=== PATIENT | female | born 1985 | race Caucasian/White ===

== ENCOUNTER 2018-02-24 15:04 | Emergency (ER) | payer MEDICARE, MEDICAID ==
[2018-02-24 17:07] LABS: HEMATOCRIT 38.1 % (36.0-47.0); HEMOGLOBIN 13.5 g/dl (12.0-15.5); MEAN CORPUSCULAR HGB CONC 35.4 g/dl (32.0-36.5); MEAN CORPUSCULAR VOLUME 90.3 fl (80.0-96.0); PLATELET COUNT, AUTOMATED 230 10^3/uL (150-450); RED BLOOD COUNT 4.22 10^6/uL (4.00-5.40); RED CELL DISTRIBUTION WIDTH 12.8 % (11.5-14.5); WHITE BLOOD COUNT 5.4 10^3/uL (4.0-10.0)
[2018-02-24 17:16] LABS: CONTROL LINE HCG INT CTR LINE PRESENT; HCG, SERUM QUALITATIVE NEGATIVE (NEGATIVE)
[2018-02-24 17:26] LABS: AMPHETAMINES LEVEL URINE POSITIVE (NEGATIVE); BARBITURATES URINE NEGATIVE (NEGATIVE); BENZODIAZEPINES URINE POSITIVE (NEGATIVE); CANNABINOIDS URINE NEGATIVE (NEGATIVE); COCAINE METABOLITE URINE NEGATIVE (NEGATIVE); METHADONE URINE NEGATIVE (NEGATIVE); OPIATES URINE NEGATIVE (NEGATIVE); PHENCYCLIDINE URINE NEGATIVE (NEGATIVE)
[2018-02-24 17:40] LABS: ACETAMINOPHEN LEVEL < 2.0 UG/ML (10.0-30.0); ALBUMIN 4.6 GM/DL (3.2-5.2); ALBUMIN/GLOBULIN RATIO 1.39 (1.00-1.93); ALKALINE PHOSPHATASE 69 U/L (45-117); ALT/SGPT 25 U/L (12-78); ANION GAP 7 MEQ/L (8-16); AST/SGOT 16 U/L (7-37); BILIRUBIN,DIRECT 0.2 MG/DL (0.0-0.2); BILIRUBIN,TOTAL 0.7 MG/DL (0.2-1.0); BLOOD UREA NITROGEN 18 MG/DL (7-18); CALCIUM LEVEL 9.2 MG/DL (8.5-10.1); CARBON DIOXIDE LEVEL 30 MEQ/L (21-32); CHLORIDE LEVEL 103 MEQ/L (98-107); CREATININE FOR GFR 0.71 MG/DL (0.55-1.30); ETHYL ALCOHOL (ETHANOL) 0.003 % (0.000-0.010); GLOMERULAR FILTRATION RATE > 60.0 (>60); GLUCOSE, FASTING 89 MG/DL (70-100); POTASSIUM SERUM 4.6 MEQ/L (3.5-5.1); SALICYLATE LEVEL 1.8 MG/DL (5.0-30.0); SODIUM LEVEL 140 MEQ/L (136-145); THYROID STIMULATING HORMONE 0.828 uIU/ML (0.358-3.740); TOTAL PROTEIN 7.9 GM/DL (6.4-8.2)
== END 2018-02-24 18:21 | disposition home or self-care (01) ==
LOC: M ED 15:04
DX: F41.9 Anxiety disorder, unspecified (principal); Z79.899 Other long term (current) drug therapy; F17.210 Nicotine dependence, cigarettes, uncomplicated
CPT/HCPCS: G0480

== ENCOUNTER → 2022-11-03 | Outpatient (CLI) | payer MEDICARE, MEDICAID ==
[~2022-11-03] MED LIST: ATIV1TAB10 PO; ATIV1TAB7 PO; BENZ5GEL16 TOP; CLAR10CA3 PO; CYMB60CA4 PO; DIAZ10TA2; ESTR25TA; FLUO40CA; OCEA0.654; PROHANCE 279.3MG/ML 15ML VIAL ONE; SERO200T PO; VITA250L PO; VYVA70CA3; XANA0.5T PO; ZOLO50TA PO
== END ==
LOC: M PLAIMG 09:32
PROVIDERS: ATTEND Ophthalmology
DX: R51.9 Headache, unspecified (principal)
CPT/HCPCS: 70543; 70553; A9576

== ENCOUNTER 2024-10-11 10:54 | Emergency (ER) | payer MEDICARE, MEDICAID ==
[~2024-10-11] VITALS: Ht 162.6 cm; Wt 69.1 kg
[~2024-10-11 10:54] MED LIST changes: -PROHANCE 279.3MG/ML 15ML VIAL ONE
[2024-10-11 10:58] VITALS: BP 127/71; TEMP 98.1; O2SAT 99
[2024-10-11] MEDS ORDERED: HYDR50TA70 (11:00)
[2024-10-11] MEDS ORDERED: FLUO-365 (11:00)
[2024-10-11] MEDS ORDERED: ADDE10TA PO (11:00)
== END 2024-10-11 13:46 | disposition home or self-care (01) ==
LOC: M ED 10:54
DX: F41.9 Anxiety disorder, unspecified (principal); Z79.899 Other long term (current) drug therapy